=== PATIENT | female | born 1945 | race Hispanic/Latino ===

== ENCOUNTER 2024-12-01 09:31 | Day surgery (SDC) | payer MEDICARE ==
[~2024-12-01] VITALS: Ht 154.9 cm; Wt 81.6 kg
[2024-12-01] VITALS (14 sets, daily range): BP systolic 97–131; BP diastolic 47–74; PULSE 58–71; RESP 15–17; TEMP 96.6–97.5
[~2024-12-01 09:31] MED LIST: AMLO-257 PO; CEFU500T67 PO; FERR-63 PO; LORA10TA7 PO; MECLIZINE PO; METH-811 PO; METO-391 PO; OMEP40CA21 PO
[2024-12-01] MEDS: 0.9%NACL 1000ML 1,000 ML IV ONE (10:14)
[2024-12-01] MEDS ORDERED: proPOFol 10 MG/ML 20ML VIAL IV ONE ×2 (11:30)
== END 2024-12-01 13:30 | disposition home or self-care (01) ==
LOC: ENDO 09:31 → DAH 09:31 → ENDO 13:30
PROVIDERS: ATTEND Internal Medicine Gastroenterology
DX: D50.0 Iron deficiency anemia secondary to blood loss (chronic) (principal); C18.7 Malignant neoplasm of sigmoid colon; K29.30 Chronic superficial gastritis without bleeding; K57.30 Diverticulosis of large intestine without perforation or abscess without bleeding; D13.1 Benign neoplasm of stomach; I10 Essential (primary) hypertension; K21.9 Gastro-esophageal reflux disease without esophagitis; M81.0 Age-related osteoporosis without current pathological fracture; M19.90 Unspecified osteoarthritis, unspecified site; Z98.890 Other specified postprocedural states; Z90.710 Acquired absence of both cervix and uterus; Z79.899 Other long term (current) drug therapy; Z53.8 Procedure and treatment not carried out for other reasons
CPT/HCPCS: 45378; 00811; J7030; J2704; A4620; A4215; J3490